=== PATIENT | female | born 1970 | race Asian ===

== ENCOUNTER 2017-01-06 13:47 | Emergency (ER) | payer OTHER ==
[~2017-01-06] VITALS: Ht 152.4 cm; Wt 86.8 kg
[~2017-01-06 13:47] MED LIST: ALBENZA200 M1 PO; ATARAX 25MG25 MG/TAB PO; CATAPRES 0.1MG0.1 MG PO; CATAPRES0.2 MG PO; FLEXERIL 1010 MG/TAB PO; HCTZ 25MG TAB25 MG PO; NORCO 325 MG-51 TAB PO; PROVENTIL0.09 MG/A1 IH; RT ADVAIR 228 DISKUS IH; SINGULAIR 110 MG/TAB PO; VENTOLIN0.09 MG IH; VITAMIN D32000 I1 PO; ZANTAC 150MG T150 MG PO; ZYRTEC 10MG10 MG PO
[2017-01-06 14:04] VITALS: TEMP 98.3
[2017-01-06 15:13] VITALS: BP 158/93; PULSE 82
[2017-01-06] MEDS ORDERED: NORCO 325 MG-51 TAB PO (15:17)
[2017-01-06] MEDS ORDERED: CLEOCIN HCL300 MG PO (15:19)
[2017-01-06] MEDS ORDERED: LEVAQUIN 750MG750 M1 PO (15:19)
[2017-01-06 16:13] LABS: PH 8 (5-8); SQUAMOUS EPITHELIAL None Seen /hpf; URINE APPEARANCE Clear; URINE BACTERIA None Seen /hpf; URINE BILIRUBIN Negative (NEGATIVE); URINE BLOOD Negative (NEGATIVE); URINE COLOR Yellow; URINE GLUCOSE Negative (NEGATIVE); URINE KETONE Negative (NEGATIVE); URINE RBC None Seen /hpf; URINE UROBILINOGEN Negative (NEGATIVE); URINE WBC 0-2 /hpf
[2017-01-06 16:15] LABS: BASO % 0.3 % (0.0-2.0); EOS # 0.1 (0.0-0.7); EOS % 1.5 % (0-4.0); GRAN # 4.6 (1.4-6.5); GRAN % 67.7 % (42.2-75.2); LYMPH # 1.5 (1.2-3.4); LYMPH % 21.9 % (20.0-51.0); MEAN CELL VOLUME 70 fl (80.0-100.0); MEAN CORPUSCULAR HGB CONC 32 g/dl (33.0-37.0); MONO # 0.5 (0.1-0.6); PLATELET COUNT 230 K/mm3 (130-400); RED BLOOD COUNT 4.83 M/mm3 (4.10-5.30); WHITE BLOOD COUNT 6.8 K/mm3 (4.8-10.8)
[2017-01-06 16:25] LABS: HEMATOCRIT 33.6 % (37.0-47.0); HEMOGLOBIN 10.8 g/dl (12.5-16.0); MEAN CORPUSCULAR HEMOGLOBIN 22 pg (27.0-31.0)
[2017-01-06 16:40] LABS: ADJUSTED CALCIUM 9.1 mg/dL (8.4-10.2); ALANINE AMINOTRANSFERASE 170 U/L (9-52); ALBUMIN 3.6 gm/dL (3.5-5.0); ALKALINE PHOSPHATASE 96 U/L (50-136); ANION GAP 9 mmol/L (7-16); BILIRUBIN,TOTAL 0.9 mg/dL (0.0-1.0); BLOOD UREA NITROGEN 7 mg/dL (7-17); CALCIUM 8.8 mg/dL (8.4-10.2); CARBON DIOXIDE 27 mmol/L (22-30); CHLORIDE 102 mmol/L (98-107); CREATININE, serum 0.54 mg/dL (0.52-1.25); GLUCOSE 110 mg/dL (74-106); LIPASE 221 U/L (23-300); POTASSIUM 3.7 mmol/L (3.4-5.0); SODIUM 138 mmol/L (137-145)
[2017-01-06 16:52] LABS: B-TYPE NATRIURETIC PEPTIDE 299 pg/mL (0-125)
[2017-01-06 17:00] LABS: TROPONIN-I < 0.012 ng/mL (0.000-0.034)
== END 2017-01-06 20:05 | disposition home or self-care (01) ==
LOC: COL.ER 13:47
PROVIDERS: Emergency Medicine
DX: J98.11 Atelectasis (principal); G89.18 Other acute postprocedural pain; R10.11 Right upper quadrant pain; R10.31 Right lower quadrant pain; J45.909 Unspecified asthma, uncomplicated; I10 Essential (primary) hypertension
CPT/HCPCS: Q9967

== ENCOUNTER → 2017-11-30 | Outpatient (CLI) | payer OTHER ==
[~2017-11-30] MED LIST changes: +CLEOCIN HCL300 MG PO; +LEVAQUIN 750MG750 M1 PO
== END ==
LOC: MC.RAD 13:12
DX: Z12.31 Encounter for screening mammogram for malignant neoplasm of breast (principal)

== ENCOUNTER 2017-12-23 18:21 | Inpatient (IN) | payer OTHER ==
[~2017-12-23] VITALS: Ht 152.4 cm; Wt 52.1 kg
[2017-12-23] VITALS (223 sets, daily range): BP systolic 119–202; BP diastolic 79–114; PULSE 62–100; TEMP 98.4; O2SAT 95–99
[2017-12-23] MEDS ORDERED: VITAMIN D 1001000 IU PO (20:47)
[2017-12-24] VITALS (516 sets, daily range): BP systolic 106–143; BP diastolic 81–102; PULSE 66–79; TEMP 97.8–98.1; O2SAT 83–99
[2017-12-24 05:53] LABS: BASO % 0.6 % (0.0-2.0); EOS # 0.2 (0.0-0.7); GRAN # 3.4 (1.4-6.5); GRAN % 54.4 % (42.2-75.2); HEMOGLOBIN 13.7 g/dl (12.5-16.0); LYMPH # 2.2 (1.2-3.4); LYMPH % 34.1 % (20.0-51.0); MEAN CELL VOLUME 71 fl (80.0-100.0); MEAN CORPUSCULAR HEMOGLOBIN 22 pg (27.0-31.0); MEAN CORPUSCULAR HGB CONC 31 g/dl (33.0-37.0); MONO # 0.5 (0.1-0.6); MONO % 7.6 % (1.7-9.3); PLATELET COUNT 213 K/mm3 (130-400); RED BLOOD COUNT 6.16 M/mm3 (4.10-5.30); REDCELL DISTRIBUTION WIDTH-CV 14.2 % (11.5-14.5)
[2017-12-24 06:03] LABS: CALCIUM 9.4 mg/dL (8.4-10.2); CREATININE, serum 0.67 mg/dL (0.52-1.25); POTASSIUM 3.9 mmol/L (3.4-5.0)
== END 2017-12-24 09:10 | disposition home or self-care (01) | DRG 305 ==
LOC: ICU 18:21
PROVIDERS: Nurse Practitioner
DX: I16.1 Hypertensive emergency (principal); I10 Essential (primary) hypertension
CPT/HCPCS: 99222-AI; J7050

== ENCOUNTER 2021-02-15 20:35 | Emergency (ER) | payer OTHER ==
[~2021-02-15] VITALS: Ht 149.9 cm; Wt 54.5 kg
[~2021-02-15 20:35] MED LIST changes: +VITAMIN D 1001000 IU PO
[2021-02-15 20:40] VITALS: TEMP 97.9
[2021-02-15 21:01] LABS: BASO % 0.6 % (0.0-2.0); EOS # 0.1 (0.0-0.7); EOS % 1.4 % (0-4.0); GRAN # 3.7 (1.4-6.5); GRAN % 50.3 % (42.2-75.2); HEMATOCRIT 41.8 % (37.0-47.0); LYMPH # 2.9 (1.2-3.4); LYMPH % 40.3 % (20.0-51.0); MEAN CELL VOLUME 72 fl (80.0-100.0); MEAN CORPUSCULAR HEMOGLOBIN 23 pg (27.0-31.0); MEAN CORPUSCULAR HGB CONC 31 g/dl (33.0-37.0); MONO # 0.5 (0.1-0.6); MONO % 6.4 % (1.7-9.3); PLATELET COUNT 149 K/mm3 (130-400); RED BLOOD COUNT 5.79 M/mm3 (4.10-5.30); REDCELL DISTRIBUTION WIDTH-CV 14.7 % (11.5-14.5)
[2021-02-15 21:39] LABS: ALANINE AMINOTRANSFERASE 35 U/L (4-34); ALBUMIN 4.4 gm/dL (3.5-5.0); ALKALINE PHOSPHATASE 94 U/L (50-136); ANION GAP 11 mmol/L (7-16); AST,SGOT 31 U/L (15-37); BILIRUBIN,TOTAL < 0.1 mg/dL (0.0-1.0); BLOOD UREA NITROGEN 17 mg/dL (7-17); CALCIUM 8.9 mg/dL (8.4-10.2); CARBON DIOXIDE 26 mmol/L (22-30); CHLORIDE 104 mmol/L (98-107); CREATININE, serum 0.79 (0.52-1.25); GLUCOSE 145 mg/dL (74-106); POTASSIUM 3.1 mmol/L (3.4-5.0); SODIUM 140 mmol/L (137-145); TOTAL PROTEIN 7.9 gm/dL (6.4-8.2)
[2021-02-15 22:10] LABS: TROPONIN-I < 0.012 ng/mL (0.000-0.035)
[2021-02-15 22:56] VITALS: BP 142/63; PULSE 79
== END 2021-02-15 22:57 | disposition home or self-care (01) ==
LOC: COL.ER 20:35
PROVIDERS: Emergency Medicine; Nurse Practitioner Primary Care
DX: J45.909 Unspecified asthma, uncomplicated (principal); I10 Essential (primary) hypertension; R00.0 Tachycardia, unspecified; Z88.6 Allergy status to analgesic agent; Z88.1 Allergy status to other antibiotic agents; Z88.5 Allergy status to narcotic agent; Z79.51 Long term (current) use of inhaled steroids
CPT/HCPCS: J1200; J7030

== ENCOUNTER → 2021-03-31 | Outpatient (CLI) | payer OTHER ==
[~2021-03-31] MED LIST changes: +COZAAR 25MG25 MG/TAB PO; +SPIRIVA RE2.5 MCG/Ac IH; +TYLENOL 325MG325 MG PO
== END ==
LOC: COL.RAD 03-26 07:30
DX: M51.36 Other intervertebral disc degeneration, lumbar region (principal); M54.16 Radiculopathy, lumbar region

== ENCOUNTER 2021-08-20 14:00 | Outpatient (RCR) | payer OTHER ==
[~2021-08-20 14:00] MED LIST changes: -COZAAR 25MG25 MG/TAB PO; -SPIRIVA RE2.5 MCG/Ac IH; -TYLENOL 325MG325 MG PO
[2021-09-17] MEDS ORDERED: COZAAR 25MG25 MG/TAB PO (18:40)
[2021-09-17] MEDS ORDERED: SPIRIVA RE2.5 MCG/Ac IH (18:40)
[2021-09-17] MEDS ORDERED: HCTZ 25MG TAB25 MG PO (18:41)
[2021-09-17] MEDS ORDERED: FLEXERIL 1010 MG/TAB PO (18:41)
[2021-09-17] MEDS ORDERED: TYLENOL 325MG325 MG PO (18:42)
== END 2021-11-11 | disposition home or self-care (01) ==
LOC: PT.GENESIS
DX: M51.36 Other intervertebral disc degeneration, lumbar region (principal)

== ENCOUNTER 2022-01-23 14:00 | Outpatient (RCR) | payer OTHER ==
[~2022-01-23 14:00] MED LIST changes: +COZAAR 25MG25 MG/TAB PO; +SPIRIVA RE2.5 MCG/Ac IH; +TYLENOL 325MG325 MG PO
== END 2022-01-26 | disposition home or self-care (01) ==
LOC: PT.GENESIS
DX: G54.9 Nerve root and plexus disorder, unspecified (principal)

== ENCOUNTER 2022-01-28 14:07 | Outpatient (RCR) | payer OTHER | END 2022-02-26 | disposition still patient (30) | LOC: PT.GENESIS | DX: G54.9 Nerve root and plexus disorder, unspecified (principal) ==

== ENCOUNTER 2022-04-22 13:00 | Outpatient (RCR) | payer OTHER | END 2022-04-28 | disposition still patient (30) | LOC: PT.GENESIS | DX: G54.9 Nerve root and plexus disorder, unspecified (principal) ==

== ENCOUNTER 2022-05-06 13:45 | Outpatient (RCR) | payer OTHER | END 2022-05-28 | disposition home or self-care (01) | LOC: PT.GENESIS | DX: G54.9 Nerve root and plexus disorder, unspecified (principal) ==